=== PATIENT | male | born 2000 | race Caucasian/White ===

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

== ENCOUNTER 2020-04-03 20:55 | Emergency (ER) | payer OTHER ==
[~2020-04-03] VITALS: Ht 170.2 cm; Wt 81.8 kg
[~2020-04-03 20:55] MED LIST: TRAZ-252 PO
[2020-04-03 20:58] VITALS: BP 120/70
[2020-04-03 22:22] LABS: COVID AG,FIA SOURCE NASOPHARYNGEAL
== END 2020-04-04 00:12 | disposition home or self-care (01) ==
LOC: EMS 20:55
DX: R11.2 Nausea with vomiting, unspecified (principal); M79.10 Myalgia, unspecified site; R50.9 Fever, unspecified; R51 Headache; F32.9 Major depressive disorder, single episode, unspecified; F17.210 Nicotine dependence, cigarettes, uncomplicated; F12.90 Cannabis use, unspecified, uncomplicated; Z20.828 Contact with and (suspected) exposure to other viral communicable diseases
CPT/HCPCS: 87426

== ENCOUNTER 2021-03-16 18:36 | Emergency (ER) | payer OTHER ==
[~2021-03-16] VITALS: Ht 170.2 cm; Wt 100.0 kg
[2021-03-16] MEDS ORDERED: HYDROCODONE/ACETAMINOPHEN 5-325 MG TABLET PO ONE (19:00)
[2021-03-16] MEDS ORDERED: SILVER SULFADIAZINE 1% 25 GM CREAM TP ONE (19:00)
[2021-03-16 19:09] VITALS: BP 142/72
[2021-03-16] MEDS ORDERED: KETOROLAC TROMETHAMINE 30 MG/ML VIAL IVP ONE (19:15)
== END 2021-03-16 20:03 | disposition home or self-care (01) ==
LOC: EMS 18:40
DX: T20.10XA Burn of first degree of head, face, and neck, unspecified site, initial encounter (principal); T21.12XA Burn of first degree of abdominal wall, initial encounter; T24.101A Burn of first degree of unspecified site of right lower limb, except ankle and foot, initial encounter; T22.111A Burn of first degree of right forearm, initial encounter; X10.2XXA Contact with fats and cooking oils, initial encounter; Y93.89 Activity, other specified; Y92.89 Other specified places as the place of occurrence of the external cause; Y99.8 Other external cause status
CPT/HCPCS: 16000; 96374; 99283; J1885